=== PATIENT | female | born 1985 | race African-American/Black ===

== ENCOUNTER 2017-02-17 13:39 | Emergency (ER) | payer MEDICAID, OTHER ==
[~2017-02-17] VITALS: Ht 165.1 cm; Wt 95.0 kg
[~2017-02-17 13:39] MED LIST: 1-ME1LIQ PO; HYDR-2768 PO; LISI-360 PO; LISI-363 PO; RANI150T PO
[2017-02-17 13:40] VITALS: BP 162/105; PULSE 74; RESP 20; TEMP 99.2; O2SAT 100
[2017-02-17] MEDS ORDERED: LISI10TA3 PO (14:27)
[2017-02-17 15:38] LABS: BLOOD, URINE NEG (NEG); GLUCOSE,URINE NEG (NEG); KETONE, URINE NEG (NEG); MUCUS URINE MANY /lpf (OCC); NITRITE,URINE NEG (NEG); SQUAMOUS EPITHELIAL CELL URINE 1 /hpf (0-5); URINE COLOR YELLOW (YELLW/STRAW)
[2017-02-17 15:39] LABS: COMMENT (UR) CULT NOT INDICATED; CULTURE IF INDICATED CULT NOT INDICATED
[2017-02-17] MEDS ORDERED: NAPR500 PO (15:46)
--- NOTE | 2017-02-17 15:46 | PD ---
HPI Chief Complaint: Abdominal Pain Time Seen by Provider: 14:32 Travel History International Travel<30 days: No Contact w/Intl Traveler<30days: No Traveled to known affect area: No History of Present Illness HPI Is a 31-year-old woman who presents to the emergency department complaining of abdominal pain. She has a surgical done at the beginning of November. She is about 5 or 6 weeks at the time. States she got a Doppler shot at the end of November. Since then she's had irregular bleeding and cramping, heavier than is typical for her menstrual cycle, so she was some urinary frequency. She 's not had sex since she had the procedure performed. She otherwise has been feeling well. History Past Medical History Medical History: Denies Significant Hx Tetanus Vaccination: < 5 Years Influenza Vaccination: No LMP: JANUARY 31, 2017 : 3 Para: 3 Past Surgical History Surgical History: No Previous Surgery Social History Alcohol Use: No Tobacco Use: No (quit a few months ago) Allergies-Medications (Allergen,Severity, Reaction): Coded Allergies: Bactrim (Verified Allergy, Unknown, 02/17/17) *MDRO Multi-Drug Resistant Organism (Verified Adverse Reaction, Unknown, ) MRSA (right leg) - 09/08/2013 MRSA PCR Screen negative 07/05/15. Reported Meds & Prescriptions Reported Meds & Active Scripts Active Naprosyn (Naproxen) 500 Mg Tab 500 Mg PO BID PRN Reported Lisinopril 10 Mg Tab 10 Mg PO DAILY Review of Systems Except as stated in HPI: all other systems reviewed are Neg Physical Exam Narrative GENERAL: Well-appearing 31-year-old woman, no acute distress. SKIN: Focused skin assessment warm/dry. HEAD: Atraumatic. Normocephalic. CARDIOVASCULAR: Regular rate and rhythm. No murmur appreciated. RESPIRATORY: No accessory muscle use. Clear to auscultation. Breath sounds equal bilaterally. GASTROINTESTINAL: Abdomen soft, non-tender, nondistended. Hepatic and splenic margins not palpable. MUSCULOSKELETAL: No obvious deformities. No clubbing. No cyanosis. No edema. PELVIC: NORMAL EXTERNAL FEMALE GENITALIA. NO SIGNIFICANT DRAINAGE. NORMAL APPEARANCE OF THE CERVIX. MINIMAL CERVICAL MOTION TENDERNESS. NO PALPABLE UTERINE ENLARGEMENT OR ADNEXAL MASSES. Data Data Last Documented VS Vital Signs Date Time Temp Pulse Resp B/P Pulse Ox O2 Delivery O2 Flow Rate FiO2 02/17/17 15:56 48 18 138/86 98 Room Air 02/17/17 13:40 99.2 Orders Ed Urine Pregnancytest Poc (02/17/17 14:32) Urinalysis - C+S If Indicated (02/17/17 15:03) Gc And Chlamydia Pcr (02/17/17 15:07) Wet Prep Profile (02/17/17 15:07) Labs Laboratory Tests Test 02/17/17 02/17/17 15:10 15:31 Urine Color YELLOW Urine Turbidity CLEAR Urine pH 6.0 Urine Specific [place] 1.035 Urine Protein 30 mg/dL Urine Glucose (UA) NEG mg/dL Urine Ketones NEG mg/dL Urine Occult Blood NEG Urine Nitrite NEG Urine Bilirubin NEG Urine Urobilinogen 2.0 MG/DL Urine Leukocyte Esterase NEG Urine RBC 10 /hpf Urine WBC 2 /hpf Urine Squamous Epithelial 1 /hpf Cells Urine Mucus MANY /lpf Microscopic Urinalysis Comment CULT NOT INDICATED Clue Cells (Wet Prep) PRESENT Vaginal Trichomonas (Wet Prep) NONE SEEN Vaginal Yeast (Wet Prep) NONE SEEN MDM Medical Decision Making Medical Screen Exam Complete: Yes Emergency Medical Condition: Yes Interpretation(s) UA negative Wet prep positive for clue cells Differential Diagnosis Adverse effect to Depo-Provera, retained products, infection or PID, cervicitis , UTI, other Narrative Course Medical decision-making new para 4 year-old woman with some pelvic pain and abnormal bleeding. I think this is an abnormal reaction to the Depo-Provera with some dysmenorrhea. No evidence of cervicitis. I don't think she has infection or PID. Recommend supportive treatment. Diagnosis Primary Impression: Pelvic pain Patient Instructions: General Instructions Additional Instructions: Take Naprosyn as prescribed. Follow up with her primary doctor in the next 2-4 days. Return to the emergency department for any new or worsening symptoms. Med/Other Pt SpecificInfo: Prescription(s) given Scripts Naproxen (Naprosyn)500 Mg [id number] Mg PO BID PRN (PAIN SCALE 1 TO 10) #20 TAB Prov:Dominick Ortega MD 02/17/17 Disposition: 01 DISCHARGE HOME Condition: Stable Dominick Ortega MD February 17, 2017 15:46
[2017-02-17 15:56] VITALS: BP 138/86; PULSE 48; RESP 18; O2SAT 98
[2017-02-17 18:10] LABS: CHLAMYDIA PCR NOT DETECTED (NOT DETECT); NEISSERIA PCR NOT DETECTED (NOT DETECT)
== END 2017-02-17 16:19 | disposition home or self-care (01) ==
LOC: NEPD 13:39
DX: R10.2 Pelvic and perineal pain (principal)
CPT/HCPCS: 81001; 84703; 87210; 87491; 87591; 99283

== ENCOUNTER 2017-03-04 14:44 | Emergency (ER) | payer MEDICAID ==
[~2017-03-04] VITALS: Ht 165.1 cm; Wt 91.0 kg
[~2017-03-04 14:44] MED LIST changes: -1-ME1LIQ PO; -HYDR-2768 PO; -LISI-360 PO; -LISI-363 PO; +LISI10TA3 PO; +NAPR500 PO; -RANI150T PO
[2017-03-04 14:45] VITALS: BP 159/107; PULSE 64; RESP 18; TEMP 98.3; O2SAT 97
[2017-03-04] MEDS ORDERED: PSEU1TAB17 PO (16:17)
[2017-03-04] MEDS ORDERED: FLUT1SPR5 EACH NARE (16:17)
--- NOTE | 2017-03-04 16:18 | PD ---
HPI . Ear pain Chief Complaint: ENT Complaint Time Seen by Provider: 16:09 Travel History International Travel<30 days: No Contact w/Intl Traveler<30days: No Traveled to known affect area: No History of Present Illness HPI Patient presents with chief complaint of right ear pain. She states that she developed a cold about 2 weeks ago. She developed pain in her right ear approximately 4 days ago. Pain is exacerbated by swallowing and by bending over. Patient has been unrelieved by DayQuil and NyQuil. It is a constant, achy pain which is rated at 8/10. PFSH Past Medical History Cardiovascular Problems: Yes (HTN) Diminished Hearing: No Hypertension: Yes Immunizations Current: No : 3 Para: 3 Past Surgical History Section: Yes (X3) Gynecologic Surgery: Yes (X2 C SECTION) Social History Alcohol Use: No Tobacco Use: No (quit a few months ago) Substance Use: No Allergies-Medications (Allergen,Severity, Reaction): Coded Allergies: Bactrim (Verified Allergy, Unknown, rash, 03/04/17) *MDRO Multi-Drug Resistant Organism (Verified Adverse Reaction, Unknown, ) MRSA (right leg) - 09/08/2013 MRSA PCR Screen negative 07/05/15. Reported Meds & Prescriptions Reported Meds & Active Scripts Active Reported Lisinopril 10 Mg Tab 10 Mg PO DAILY Review of Systems Except as stated in HPI: all other systems reviewed are Neg General / Constitutional: No: Fever, Chills Eyes: No: Drainage, Redness HENT: Positive: Sore Throat, Earache Hematologic/Lymphatic: Positive: Lymph Node Enlargement Physical Exam Narrative GENERAL: Patient is awake and alert and in no acute distress. SKIN: Warm and dry. HEAD: Atraumatic. Normocephalic. EYES: Pupils equal and round. Extraocular movements are intact. ENT: TMs are both shiny vance with good light reflexes. Nose has some very mild edema and clear rhinorrhea. Oropharynx has no erythema, tonsillar enlargement or exudate. NECK: Trachea midline. She does have a tender shotty lymph node on the right. CARDIOVASCULAR: Regular rate and rhythm. RESPIRATORY: No accessory muscle use. MUSCULOSKELETAL: No obvious deformities. No edema. NEUROLOGICAL: Awake and alert. No obvious cranial nerve deficits. Motor grossly within normal limits. Normal speech. PSYCHIATRIC: Appropriate mood and affect; insight and judgment normal. Data Data Last Documented VS Vital Signs Date Time Temp Pulse Resp B/P Pulse Ox O2 Delivery O2 Flow Rate FiO2 03/04/17 16:09 17 03/04/17 14:45 98.3 64 159/107 97 Room Air MDM Medical Decision Making Medical Screen Exam Complete: Yes Emergency Medical Condition: Yes Differential Diagnosis Differential diagnosis of ear pain includes eustachian tube dysfunction, otitis externa, otitis media, TMJ syndrome Narrative Course Patient presents complaining with right ear pain. Her exam is negative. She is having eustachian tube dysfunction. She'll be instructed to take pseudoephedrine and use Afrin for the next couple of days. She will be instructed to take Flonase for Nasacort. She'll be instructed to use sweet oil in her ear. Diagnosis Primary Impression: Otalgia, right ear Additional Impression: Eustachian tube dysfunction Qualified Code: H69.81 - Eustachian tube dysfunction, right Patient Instructions: Earache (ED), Eustachian Tube Dysfunction (GEN), General Instructions Additional Instructions: Use Afrin nose spray twice a day for the next 3 days. Med/Other Pt SpecificInfo: Prescription(s) given Scripts Pseudoephedrine ER 12 HR 120 Mg Rio020 Mg PO BID #60 TAB Ref 0 Prov:Melissa Cunningham MD 03/04/17 Fluticasone Nasal [place] (Flonase Nasal [place])50 Mcg/Act Spray50 Mcg EACH NARE BID #1 BOTTLE Ref 0 Prov:Melissa Cunningham MD 03/04/17 Disposition: 01 DISCHARGE HOME Condition: Stable Melissa Cunningham MD Mar 04, 2017 16:18
[2017-03-04 16:22] VITALS: BP 140/87; TEMP 97.8
== END 2017-03-04 16:28 | disposition home or self-care (01) ==
LOC: NEPD 14:44
DX: H92.01 Otalgia, right ear (principal); H69.81 Other specified disorders of Eustachian tube, right ear; I10 Essential (primary) hypertension; Z87.891 Personal history of nicotine dependence
CPT/HCPCS: 99284